=== PATIENT | female | born 1985 | race Hispanic/Latino ===

== ENCOUNTER → 2024-01-10 | Outpatient (CLI) | payer BC, OTHER ==
[~2024-01-10] MED LIST: CALC500T13 PO; IBUP-2070 PO; PNV1TABL57 PO
== END | disposition home or self-care (01) ==
LOC: RAH 11:35
PROVIDERS: ATTEND Obstetrics & Gynecology
DX: R92.323 Mammographic fibroglandular density, bilateral breasts (principal); N64.4 Mastodynia

== ENCOUNTER → 2025-03-31 | Outpatient (CLI) | payer OTHER, SELFPAY ==
[~2025-03-31] MED LIST changes: +IBUP-1492 PO; -IBUP-2070 PO
--- NOTE | 2025-04-04 09:45 | HMCIMG ---
BILATERAL BREAST ULTRASOUND: Finding: Real-time examination of the both breasts demonstrates heterogeneous echotexture throughout both the breasts. Patient has history of both breast reduction with scars. The right breast there is a small hypoechoic lesions are seen at 6:00 measuring 0.7 x 0.4 x 0.7 cm. There is another this hypoechoic lesion seen at 6:00 measuring 0.6 x 0.5 x 0.5 cm. There is a third lesion seen at 6:00 measuring 1.0 x 0.6 x 1.1 cm.. This is suggesting of intramammary lymph node. The left breast at 12:00 there is a isoechoic lesion seen measuring 1.1 x 0.5 x 0.7 cm. Suggesting of intramammary lymph node. IMPRESSION: Multiple small lesions seen suggesting of intramammary lymph node with surgical scar from breast reduction. I would recommend 6 month follow-up for further evaluation. FINAL ASSESSMENT: ACR: BI-RAD -3. Probably Benign: Finding(s) has a high probability of being benign; short term follow up is suggested. Management: Short-interval (6-month) follow-up or continued surveillance mammography. Likelihood of Cancer: 0% but <=2% likelihood of malignancy.
== END | disposition home or self-care (01) ==
LOC: RAH 12:45
PROVIDERS: ATTEND Obstetrics & Gynecology
DX: N63.12 Unspecified lump in the right breast, upper inner quadrant (principal); N63.25 Unspecified lump in the left breast, overlapping quadrants; N64.89 Other specified disorders of breast